=== PATIENT | female | born 1950 | race Caucasian/White ===

== ENCOUNTER 2018-10-10 14:35 | Inpatient (IN) ==
--- NOTE | 2018-10-10 15:38 | Diag Imaging Result Doc PS360 ---
EXAM: FLAT/UPRIGHT ABD/1 VIEW CHEST INDICATION: POST OP TECHNIQUE: 3 views COMPARISON: Abdominal radiograph dated 07/11/2018 FINDINGS: There are nonspecific bowel gas and stool patterns. Most of the gaseous colonic. However, there is probably some small bowel gas in the left abdomen. It is nonspecific and similar to the previous study. There is nothing that would necessarily indicate obstruction. At least no high-grade obstruction is appreciated. This is probably related to mild ileus given the post op status. There is patchy retained barium in the colon. Multiple metallic clips project of the left upper quadrant. There is no evidence of large volume free abdominal gas. There is no evidence of organomegaly. The lungs are grossly clear. There is no discrete pleural fluid collection or pneumothorax. There is suggestion of moderate size hiatal hernia. The cardiomediastinal silhouette and central vasculature are unremarkable, otherwise. IMPRESSION: 1.Nonspecific abdomen. 2.Hiatal hernia. Electronically signed by Lucius Barnett 10/10/2018 3:36 PM
[2018-10-10] MEDS ORDERED: ROCEPHIN 2 GM in NS 50 ML IV ONE (19:42)
[2018-10-10 20:17] LABS: BASO# 0.05 X1000 (0.0-0.2); BASO% 0.5 % (0.0-0.8); EOS# 0.03 X1000 (0.0-0.7); EOS% 0.3 % (0.0-10.0); HEMATOCRIT 29.8 % (37.0-47.0); HEMOGLOBIN 10.1 g/dL (12.0-16.0); IMM GRAN# 0.04 X1000 (0.0-0.04); IMM GRAN% 0.4 % (0.0-0.5); LYMPH# 1.83 X1000 (1.2-3.4); LYMPH% 18.3 % (20.5-51.1); MCH 30.4 PG (27-31); MCHC 33.9 g/dL (33-37); MCV 89.8 FL (81-99); MONO# 0.94 X1000 (0.11-0.59); MONO% 9.4 % (1.7-9.3); MPV 8.5 FL (7.4-10.4); NEUT# 7.12 X1000 (1.4-6.5); NEUT% 71.1 % (42.2-75.2); PLT 431 X1000 (130-400); RBC 3.32 XMIL (4.2-5.4); RDW 13.2 % (11.5-14.5); WBC 10.01 X1000 (4.8-10.8)
[2018-10-10 20:48] LABS: ALB/GLOB RATIO 0.9; ALBUMIN 2.6 g/dL (3.5-5.0); CALCIUM 8.7 mg/dL (8.8-10.2); CREATININE 1.5 mg/dL (0.5-0.9); POTASSIUM 3.3 mmol/L (3.5-5.1); TOTAL BILIRUBIN 0.69 mg/dL (0.20-1.00); TOTAL PROTEIN 5.6 g/dL (6.3-8.3)
--- NOTE | 2018-10-10 22:07 | Diag Imaging Result Doc PS360 ---
EXAM: CT ABDOMEN/PELVIS W/O CONTRAST - 10/10/2018 HISTORY: post paracentesis abd pain/gfr 37 TECHNIQUE: CT abdomen pelvis without contrast. No contrast administered per request of the referring provider. COMPARISON: CT abdomen/pelvis with intravenous contrast 04/18/2018 FINDINGS: There is a relatively large amount of low-density ascites. Stat there is no discrete peritoneal hematoma or hemoperitoneum identified. There is no evidence of bowel obstruction. There is no discrete extraluminal gas collection or abscess identified. There is no free air identified. There is retained barium multiple colonic diverticuli. There is no diverticulitis identified. There is a hiatal hernia. There are postsurgical changes of gastric bypass. There is possible cirrhosis. There is no discrete focal liver lesion identified. The spleen does not appear substantially enlarged. There are no calcified gallstones identified. There is no renal stone or hydronephrosis identified. IMPRESSION: Large amount of low-density ascites. No discrete peritoneal hematoma or hemoperitoneum. No bowel obstruction. No free air. Retained barium in colonic diverticuli. Hiatal hernia. Possible cirrhosis. This exam was performed using automated exposure control, adjustment of mA or kV according to patient size, and/or use of iterative reconstruction technique. Electronically signed by Juan Carlos Feliciano 10/10/2018 10:05 PM
[2018-10-11] MEDS ORDERED: DILAUDID IV PRN (00:10)
[2018-10-11] MEDS ORDERED: ZOFRAN IV PRN (00:11)
[2018-10-11] MEDS ORDERED: KLOR-CON PO ONE (00:13)
[2018-10-11] MEDS ORDERED: NORCO-7.5 PO ONE (00:45)
[2018-10-11] MEDS: FLAGYL 500 MG/NS 500 MG/100 ML IVPB IV SCH ×2 (01:49→05:47)
--- NOTE | 2018-10-11 04:59 | HISTORY AND PHYSICAL ---
PRIMARY CARE PROVIDER: Michele Zazueta. INSTRUMENTATION SUPERVISOR: Dr. Pruitt. CHIEF COMPLAINT: Abdominal pain. HISTORY OF PRESENT ILLNESS: Ms. Garzon is a 68-year-old female who has a past medical history of alcohol abuse, alcoholic cirrhosis, ascites, hiatal hernia and GERD. She was a five-plus glass per day of wine drinker up until April of this year. She started having difficulty with cirrhosis and has been getting paracentesis. Her last one was one day ago. Apparently this has happened the last two times she has had a paracentesis. They have both been ultrasound- guided. Around 9 liters of fluid was pulled off on both occasions and the patient started having severe abdominal pain and was brought into the emergency room. A CT scan obtained today showed a large amount of low density ascites. No discrete peritoneal hematoma or hemoperitoneum. No bowel obstruction. No free air. There was retained barium in the colonic diverticula and a hiatal hernia as well as possible cirrhosis. She will be admitted for IV antibiotics as we cannot rule out spontaneous bacterial peritonitis. She will be placed on the medical floor for further evaluation and treatment. PAST MEDICAL HISTORY: See HPI. PREVIOUS SURGICAL HISTORY: 1. Gastric bypass. 2. Lower back surgery. 3. Bilateral foot bunionectomy. 4. Paracentesis. SOCIAL HISTORY: , lives in [place]. Remote history of tobacco. No alcohol since April. No illicit drugs. FAMILY HISTORY: Father of leukemia in the 70s. Mother had congestive heart failure. One brother who from AIDS, I believe. ALLERGIES: Darvon causing her to pass out. REVIEW OF SYSTEMS: Fourteen point review of systems conducted with the patient. Pertinent positives listed above in the HPI. All other systems reviewed and found to be negative. PHYSICAL EXAMINATION: VITALS: Temperature 97.4, pulse 89, respirations 16, blood pressure 101/55, oxygen saturation 99% on room air. GENERAL: A pleasant 68-year-old female, lying in the ER stretcher. Is in no acute distress, answers all questions appropriately. HEENT: Head is atraumatic, normocephalic. Pupils equal, round, reactive to light. Extraocular eye movement intact. Sclerae are anicteric. Conjunctiva is pale. Oral mucosa is moist. NECK: Supple. Mild JVD with hepatojugular reflex. Trachea is midline. No cervical lymphadenopathy. CARDIAC: S1, S2 appreciated. No murmurs, gallops, or rubs. LUNGS: Clear to auscultation bilaterally. No rhonchi, wheezes, rales. Symmetric rise and fall with respirations. ABDOMEN: Protuberant, soft, mildly distended. Positive fluid wave test. Right flank site from previous paracentesis noted. Abdomen positive for rebound tenderness. No guarding. No rigidity. Bowel sounds decreased all four quadrants. EXTREMITIES: Three-plus pitting edema. No clubbing, cyanosis. One-plus pedal pulses bilaterally. GENITOURINARY: No bladder distention. Patient voids. Otherwise deferred. NEUROLOGICAL: Alert and oriented times 3. Cranial nerves II through XII grossly intact. DIAGNOSTIC DATA: CT of the abdomen showed retained barium in the colonic diverticula, hiatal hernia, large amount of low density ascites. No discrete peritoneal hematoma or hemoperitoneum. Possible cirrhosis. LABORATORY DATA: Hemoglobin 10.1. Hematocrit 29.8. Sodium 131. Potassium 3.3. Chloride 86. Carbon dioxide 30. BUN 56. Creatinine 1.5. Glucose 111. ASSESSMENT AND PLAN: 1. Questionable spontaneous bacterial peritonitis. Will treat with 2 grams of Rocephin IV. Will also add on Flagyl 500 mg IV q.6.h in case there was possible microperforation, however, it is unlikely as it was done ultrasound-guided. Will consult Dr. Gallego as well as Dr. Pruitt. Danii as needed for pain. 2. Hyperkalemia. Treat with 40 mEq potassium. Recheck tomorrow morning. 3. Chronic renal insufficiency. Will not give fluids at this time. Recheck laboratory data in a.m. Patient appears to be fluid overloaded. She does have JVD and hepatojugular reflex as well as lower extremity edema. 4. Anemia. Check anemia profile. 5. Hepatic cirrhosis with portal hypertension. Aware. Patient may need an additional paracentesis. Will defer to primary team. Further recommendations per patient clinical course. Dictated by SORAYA Peres for Sandrita Valadez MD cc: SORAYA Peres MD Gregory S. Cheatham, MD I examined this pt at bedside with [employer]ACH[employer] and discussed the above plan of care with [employer]. Pt does display peritoneal signs on examination and I would again recommend a diagnostic paracentesis to confirm infectious etiology. She may need optimization of aldactone to decrease incidence of paracentesis. JOHNNIE
[2018-10-11] MEDS: PROTONIX PO SCH ×2 (05:47→06:51)
[2018-10-11 06:32] LABS: TOTAL IRON 15 ug/dL (49-151); UNBOUND IRON 181 ug/dL (112-346)
[2018-10-11 06:33] LABS: IRON SATURATION 8 %; TIBC 196 ug/dL
[2018-10-11 07:09] LABS: BASO# 0.05 X1000 (0.0-0.2); BASO% 0.6 % (0.0-0.8); EOS# 0.07 X1000 (0.0-0.7); EOS% 0.9 % (0.0-10.0); HEMATOCRIT 27.8 % (37.0-47.0); HEMOGLOBIN 9.2 g/dL (12.0-16.0); IMM GRAN# 0.05 X1000 (0.0-0.04); IMM GRAN% 0.6 % (0.0-0.5); LYMPH# 1.82 X1000 (1.2-3.4); LYMPH% 23.3 % (20.5-51.1); MCH 29.9 PG (27-31); MCHC 33.1 g/dL (33-37); MCV 90.3 FL (81-99); MONO# 0.82 X1000 (0.11-0.59); MONO% 10.5 % (1.7-9.3); MPV 8.6 FL (7.4-10.4); NEUT# 5.01 X1000 (1.4-6.5); NEUT% 64.1 % (42.2-75.2); PLT 363 X1000 (130-400); RBC 3.08 XMIL (4.2-5.4); RDW 13.1 % (11.5-14.5); WBC 7.82 X1000 (4.8-10.8)
[2018-10-11 07:49] LABS: CALCIUM 8.3 mg/dL (8.8-10.2); CREATININE 1.4 mg/dL (0.5-0.9); MAGNESIUM 1.9 mg/dL (1.5-2.7); POTASSIUM 3.7 mmol/L (3.5-5.1)
[2018-10-11] MEDS: LACTULOSE PO SCH (09:36)
[2018-10-11] MEDS: FOLIC ACID PO SCH (09:36)
[2018-10-11] MEDS: NORCO-7.5 PO PRN ×3 (10:21→22:17)
--- NOTE | 2018-10-11 10:49 | GENERAL SURGERY CONSULTATION ---
DATE: 10/11/2018 REASON FOR CONSULTATION: Abdominal pain. HISTORY OF PRESENT ILLNESS: This is a 68-year-old female with a past medical history of alcoholic cirrhosis, gastroesophageal reflux disease, and hiatal hernia, who recently underwent ultrasound- guided paracentesis 2 days ago with removal of 9 liters of turbid abdominal fluid. A few hours after the procedure, she started having severe abdominal pain across her upper abdomen. She came in for evaluation. She has not had nausea, vomiting, or fever. She had a previous similar episode 2 weeks ago after paracentesis. CT scan in the emergency room last night shows low- density ascites, but no hemoperitoneum, hematoma, free air, or obvious abscess. There was a large amount of ascites remaining. PAST MEDICAL HISTORY: As above in HPI. PAST SURGICAL HISTORY: Gastric bypass, lower back surgery, bilateral foot bunionectomy, and paracentesis. SOCIAL HISTORY: She is . She has a remote history of tobacco. She quit drinking in April of last year. No illicit drug use. FAMILY HISTORY: Leukemia in her father, congestive heart failure in her mother, and AIDS in a brother. ALLERGIES: Darvon. HOME MEDICATIONS: Protonix, folic acid, lactulose. PHYSICAL EXAMINATION: Vital Signs: Temperature 97 degrees, pulse is 70s-80s, blood pressure 98- 100 systolic, O2 saturation 94% to 97%. General: Well-developed, well-nourished female in no acute distress, who looks her stated age. HEENT: Normocephalic, atraumatic. Extraocular muscles intact. Pupils equal, round, reactive to light. Sclerae anicteric. Moist mucous membranes. Hearing grossly normal. No oral lesions. Neck: Supple, no thyromegaly. CV: Regular rate and rhythm. Respiratory: Bilateral equal breath sounds. No work of breathing. GI: Mildly distended, dull to percussion, mildly tender. No rebound or guarding. Good bowel sounds throughout. Extremities: She does have pitting edema throughout. No clubbing or cyanosis. Musculoskeletal: Moves all extremities equally and well. LABORATORY: White blood cell count 7.8, hemoglobin 9.2, hematocrit 27.8, platelet count 363,000. Electrolytes notable for sodium of 131, BUN 54, creatinine 1.4. IMAGING: As described above in HPI. ASSESSMENT AND PLAN: A 68-year-old female with abdominal pain after paracentesis with cirrhosis. She potentially could have bacterial peritonitis. I do not think there is any evidence of bowel perforation. I will continue antibiotics, judicious fluids, and observation at this time. cc: Han Neff MD
--- NOTE | 2018-10-11 12:29 | CONSULTATION ---
DATE OF CONSULTATION: 10/11/2018 REASON FOR CONSULTATION: Abdominal pain, cirrhosis of the liver, status post paracentesis. HISTORY OF PRESENT ILLNESS: This is a 68-year-old female, known to our practice following for history of alcoholic cirrhosis of the liver. She has had ascites refractory to medical management and has required frequent paracenteses. Her last paracentesis was on Sunday, where 9 L of fluid was removed. Patient reports approximately 2 hours after procedure, she started having severe abdominal pain. She had the same symptoms with her previous paracentesis that was approximately 2 to 3 weeks ago. She came in to the hospital for that pain at that time also. The patient has denied nausea or vomiting. No reported fever. She had a CT scan of the abdomen that shows continued ascites, but no evidence of hemoperitoneum, hematoma, or free air. Currently, patient states pain has improved some. She is receiving pain medication. She reports feeling of fullness with diffuse pain. PAST MEDICAL HISTORY: Cirrhosis of the liver, history of alcohol abuse, GERD, hiatal hernia, and portal hypertension. PAST SURGICAL HISTORY: Danny-en-Y gastric bypass, back surgery, cholecystectomy. Last EGD and colonoscopy was in 2018. ALLERGIES: Darvon causing dizziness. HOME MEDICATIONS: Folic acid 1 mg daily, lactulose 1 tablespoon daily, and Protonix 40 mg daily. SOCIAL HISTORY: History of tobacco use. She has withdrawn from alcohol, I believe, since April 2018. She is . FAMILY HISTORY: Leukemia in father. Congestive heart failure in mother, and AIDS in a brother. REVIEW OF SYSTEMS: Per history of present illness. PHYSICAL EXAM: Vital Signs: Temperature 97.7, pulse 79, respirations 16, blood pressure 98/56. General: Patient is awake, alert, in no acute distress. She is lying in the bed. HEENT: Normocephalic, atraumatic. Pupils equal, round, reactive to light. Sclerae nonicteric. Cardiovascular: Regular rate and rhythm. Respiratory: Lung sounds clear. Abdomen: With some distention, mild tenderness. Otherwise essentially soft with positive bowel sounds. Extremities: With lower extremity edema noted. LABORATORY: Hematology: WBC 7.82, hemoglobin 9.2, hematocrit 27.8, MCV 90.3, platelet 363,000. Chemistry: Sodium 131, potassium 3.7, chloride 88, CO2 29, BUN 54, creatinine 1.4, glucose 96, calcium 8.3, magnesium 2.0, iron 28, TIBC 95, percent saturation 29, ferritin 656, total bilirubin 0.69, AST 20, ALT 12, alkaline phosphatase 137. Vitamin B12 258. Folate 33.9. TSH 5.64. IMAGING: Abdominal CT scan showed large amount of ascites with no peritoneal hematoma or hemoperitoneum. ASSESSMENT AND PLAN: 1. Abdominal pain status post paracentesis on 10/09/2018 with 9 liters of fluid removed. At that time, there was no evidence of bacterial peritonitis. 2. Cirrhosis of the liver. Continue current medications. PLAN: Continue symptomatic treatment and supportive care. Continue antibiotics. Further plans to be made according to her progress. I have discussed this case with Dr. Pruitt. Once she is discharged, will most likely give her some pain medication to have after her paracentesis and see if this can prevent her from having to come in to the emergency room. Again, further plans to be made according to her symptoms. Hopefully, she can be discharged over the weekend. I have discussed this case with Dr. Pruitt. Dictated by SORAYA Newell for Taras Pruitt MD cc: SORAYA Fan MD
--- NOTE | 2018-10-11 14:12 | PROGRESS NOTE ---
DATE: 10/11/2018 Patient admitted with concerns for spontaneous bacterial peritonitis after developing abdominal pain post paracentesis. Workup thus far largely unremarkable. Patient still some abdominal pain but improving. Will continue to observe for signs of new or worsening infection, continue IV antibiotics for today but if she remains stable and no other problems present themselves then can likely be discharged tomorrow on p.o. antibiotics . Potassium improved status post repletion. Mild hyponatremia stable. Abdomen with only minimal diffuse tenderness with no rebound or guarding.
[2018-10-11] MEDS: ROCEPHIN 2 GM in NS 50 ML IV SCH ×2 (20:10→20:49)
[2018-10-12] MEDS: PROTONIX PO SCH (06:35)
[2018-10-12 08:03] VITALS: BP 116/66
[2018-10-12] MEDS: FOLIC ACID PO SCH (10:51)
[2018-10-12] MEDS: LACTULOSE PO SCH (10:51)
--- NOTE | 2018-10-12 22:58 | DISCHARGE SUMMARY ---
ADMISSION DATE: 10/11/2018 DISCHARGE DATE: 10/12/2018 DISCHARGE DIAGNOSES: 1. Abdominal pain, questionable spontaneous bacterial peritonitis. 2. Hypokalemia, resolved. 3. Liver cirrhosis with ascites. 4. Chronic renal insufficiency. CONSULTS: Gastroenterology Department, Dr. Dusty Pruitt. HOSPITAL COURSE: A 68-year-old female with a past medical history of alcohol abuse, alcoholic cirrhosis, ascites, hiatal hernia on EGD. Apparently on 10/09/2018, she had a paracentesis done, and 9 L of fluid was removed. At that time, she did not have any kind of evidence of bacterial peritonitis. CT scan done showed a large amount of low-density ascites, no bowel obstruction, and/or no free air. There was retained barium in the colonic diverticula and a hiatal hernia as well as possible cirrhosis. She received IV antibiotics for the possibility of SBP. She was placed on the medical floor, and Gastroenterology evaluated this patient. She received some pain medication, and she states that the pain basically comes when she drinks or eats something cold, but for the most part, she has been she has been feeling much better. Since we cannot rule out at this moment a spontaneous bacterial peritonitis, I will continue with p.o. antibiotics at home. She is completely asymptomatic today. She still has ascites, though, and she has an appointment to get the paracentesis done again. Also she will see Dr. Pruitt next coming Sunday. PHYSICAL EXAMINATION: Vital signs: Temperature 98.3 degrees, pulse 95, respiratory rate 16, blood pressure 116/66, oxygen saturation 100% on room air. HEENT: Head normocephalic, no trauma. PERRLA. Neck: Supple. No JVD. No masses. Central trachea. Chest: Clear to auscultation. Mild rales at the bases. Cardiovascular: RRR. Abdomen: Soft, protuberant. It is distended. Positive wave sign. She has ascites. Extremities: Trace lower extremity edema. No clubbing. No cyanosis. Neurological: The patient is alert and oriented x3. No focal deficits. LABORATORY: No lab work done today. I have reviewed the lab work from yesterday with a WBC of 7.8, hemoglobin 7.2, hematocrit 27.8. Sodium 131, potassium 3.7, chloride 88, bicarbonate 29, BUN 54, creatinine 1.4, glucose 96, calcium 8.3, magnesium 2. DISCHARGE MEDICATIONS: 1. Protonix 40 mg p.o. daily. 2. Folic acid 1 mg p.o. daily. 3. Lactulose 30 mL p.o. daily. 4. Ciprofloxacin 500 mg p.o. q.12 hours for 7 days. FOLLOWUP: Follow up with primary care doctor and follow up with Dr. Pruitt 10/15/2018. At the moment of discharge, this patient was in a stable medical condition, tolerating p.o., no mental status changes. TIME DISCHARGING THIS PATIENT: 35 minutes. cc: Noel Isbell MD
== END 2018-10-12 14:00 | disposition home or self-care (01) | DRG 372 ==
LOC: ED 14:35 → 3N 10-11 00:32 → SUATTDRO 10-11 00:32
PROVIDERS: ATTEND Internal Medicine
CPT/HCPCS: 36415; 49083; 74022; 74176; 80048; 80053; 82607; 82728; 82746; 83540; 83550; 83605; 83690; 83735; 84443; 85025; 85610; 85730; 87040; 87070; 89051; 96365; 96366; 99285; A9270; J0696; P9047; S0030